=== PATIENT | female | born 1995 | race African-American/Black ===

== ENCOUNTER 2019-09-23 13:18 | Emergency (ER) | payer OTHER ==
[~2019-09-23] VITALS: Ht 162.6 cm; Wt 133.8 kg
[2019-09-23] MEDS ORDERED: IBUPROFEN 400 MG TAB PO ONE (13:45)
--- NOTE | 2019-09-23 14:55 | Diagnostic Imaging Report ---
EXAMINATION: WRIST COMPLETE RIGHT INDICATION: Trauma COMPARISON: None FINDINGS: No acute fracture or dislocation. Alignment appears anatomic. No substantial degenerative change. The soft tissues appear unremarkable. IMPRESSION: No acute osseous injury. Signed by: Mamadou Neri MD on 09/23/2019 2:52 PM
--- NOTE | 2019-09-23 15:10 | NUR ---
SPLINT ON WITH PMS BEFORE AND AFTER.
== END 2019-09-23 15:10 | disposition home or self-care (01) ==
LOC: ER 13:33
DX: S63.501A Unspecified sprain of right wrist, initial encounter (principal); Y04.8XXA Assault by other bodily force, initial encounter; Y92.512 Supermarket, store or market as the place of occurrence of the external cause; Y99.0 Civilian activity done for income or pay
CPT/HCPCS: 99284